=== PATIENT | male | born 1990 | race Caucasian/White ===

== ENCOUNTER 2017-01-07 20:06 | Emergency (ER) | payer OTHER ==
[2017-01-07] MEDS ORDERED: Acetaminophen 325 MG Tab PO ONE (20:27)
[2017-01-07] MEDS ORDERED: Ibuprofen 800 MG Tab PO ONE (20:27)
--- NOTE | 2017-01-07 20:29 | EDM.PDOC ---
ED HPI ENT - General Chief Complaint: ENT Problem Stated Complaint: PT HAS SORE THROAT Time Seen by Provider: 01/07/17 20:20 Source of Information: Reports: Patient History Limitations: Reports: No limitations - History of Present Illness INITIAL COMMENTS - FREE TEXT/NARRATIVE: HISTORY AND PHYSICAL: History of present illness: [26-year-old male with no significant past medical history now complaining of cough congestion intermittent fevers and sore throat times more than a week] patient has coughing fits that are sometimes severe and difficult to stop. He is sore from coughing. Denies shortness of breath. It does hurt to swallow the patient has no neck swelling. No vomiting or diarrhea. We'll bowel and bladder habits Review of systems: As per history of present illness and below otherwise all systems reviewed and negative. Past medical history: As per history of present illness and as reviewed below otherwise noncontributory. Surgical history: As per history of present illness and as reviewed below otherwise noncontributory. Social history: No reported history of drug or alcohol abuse. Family history: As per history of present illness and as reviewed below otherwise noncontributory. Physical exam: HEENT: Atraumatic, normocephalic, pupils reactive, negative for conjunctival pallor or scleral icterus, mucous membranes moist, throat clear, neck supple, nontender, trachea midline. Lungs: Clear to auscultation, breath sounds equal bilaterally, chest nontender. Heart: S1S2, regular, negative for clicks, rubs, or JVD. Abdomen: Soft, nondistended, nontender. Negative for masses or hepatosplenomegaly. Negative for costovertebral tenderness. Pelvis: Stable nontender. Genitourinary: Deferred. Rectal: Deferred. Extremities: Atraumatic, negative for cords or calf pain. Neurovascular unremarkable. Neuro: Awake, alert, oriented. Motor and sensory unremarkable throughout. Exam nonfocal. Diagnostics: [] Therapeutics: [] Impression: [] Plan: [Signs and symptoms consistent with persistent viral URI an otherwise healthy patient. Patient throat is normal-appearing and consistent with viral pharyngitis. Clear lungs normal respiratory rate and pulse ox patient is taking Mucinex DM [id number] and we'll prescribe Tessalon. Patient has not been treated for this illness she had and it is possible he may have an atypical pneumonia so we will prescribe Zithromax which are reassured and will also cover him for the much less likely possibility of an early bacterial infection in his throat. Patient aware to take prednisone to help symptomatically with his cough and presumed pulmonary inflammation ] Definitive disposition and diagnosis as appropriate pending reevaluation and review of above. - Related Data Allergies/ADRs: Allergies Allergy/AdvReac Type Severity Reaction Status Date / Time No Known Allergies Allergy Verified 01/07/17 20:17 Home Meds: Home Meds Azithromycin [Zithromax] 250 mg PO DAILY #6 tablet 01/07/17 [Rx] Benzonatate 200 mg PO TID #30 capsule 01/07/17 [Rx] Prednisone [IMW: predniSONE] 60 mg PO WITHBREAKFAST #7 tab 01/07/17 [Rx] ED ROS ENT - Review of Systems Review Of Systems: See Below ED EXAM, ENT - Physical Exam Exam: See Below (History of present illness) Course - Vital Signs Last Recorded V/S: Last Vital Signs Temp 37.4 C 01/07/17 20:17 Pulse 96 01/07/17 20:17 Resp 18 01/07/17 20:17 BP 136/80 01/07/17 20:17 Pulse Ox 97 01/07/17 20:17 - Orders/Labs/Meds Meds: Medications Discontinued Medications Generic Name Dose Route Start Last Admin Trade Name Dulce PRN Reason Stop Dose Admin Acetaminophen 650 mg 01/07/17 20:27 01/07/17 20:33 Tylenol PO 01/07/17 20:28 650 mg NOW ONE Administration Ibuprofen 800 mg 01/07/17 20:27 01/07/17 20:33 Motrin PO 01/07/17 20:28 800 mg ONETIME ONE Administration Departure - Departure Time of Disposition: 20:29 Disposition: Home, Self-Care 01 Condition: good Clinical Impression: Viral URI with cough, Acute viral syndrome Prescriptions: Azithromycin [Zithromax] 250 mg PO DAILY #6 tablet Benzonatate 200 mg PO TID #30 capsule Prednisone [IMW: predniSONE] 60 mg PO WITHBREAKFAST #7 tab Instructions: Viral Respiratory Infection, [id number] Referrals: PCP,None [Primary Care Provider] - Forms: ED Department Discharge Additional Instructions: Appears to have a viral upper respiratory infection. This can sometimes last for weeks. Rest and drink plenty of fluids. Take Motrin and Tylenol as needed for fevers or aches or discomfort with cough. Use Mucinex DM to help break up mucus and control cough. If you still have cough take Tessalon as prescribed. We are giving you Zithromax to cover for the possibility of walking pneumonia. If you do not notice a significant improvement within several days it's likely that it is viral syndrome and viral infection alone. Finish prednisone as prescribed this is a very strong anti-inflammatory medicine the will help suppress inflammation associated with your cough. Followup with your Dr. in one to 2 days and return immediately for new severe or worsening symptoms
[2017-01-07 21:30] VITALS: BP 127/77
== END 2017-01-07 20:55 | disposition home or self-care (01) ==
LOC: MW.ED 20:06
DX: J06.9 Acute upper respiratory infection, unspecified (principal); B34.9 Viral infection, unspecified; Z79.2 Long term (current) use of antibiotics
CPT/HCPCS: 99282; A9270; 99283

== ENCOUNTER 2024-10-16 14:22 | Emergency (ER) | payer OTHER ==
[2024-10-16] MEDS: Amoxicillin/Clavulanate K 875-125 MG Tab PO ONE (16:25)
[2024-10-16] MEDS: Benzocaine 20% Topical Spray UD MUCMEM ONE (16:25)
[2024-10-16] MEDS: Acetaminophen/HYDROcodone 325-5 MG Tab PO ONE (16:25)
[2024-10-16] MEDS: Lidocaine 2% Viscous Solution 15 ML UD PO ONE (16:25)
[2024-10-16 17:32] VITALS: BP 136/76; PULSE 82
== END 2024-10-16 17:32 | disposition home or self-care (01) ==
LOC: MW.ED 14:22
DX: S02.42XA Fracture of alveolus of maxilla, initial encounter for closed fracture (principal); S01.511A Laceration without foreign body of lip, initial encounter; Z90.49 Acquired absence of other specified parts of digestive tract; Z79.899 Other long term (current) drug therapy; Z75.8 Other problems related to medical facilities and other health care; W22.8XXA Striking against or struck by other objects, initial encounter
CPT/HCPCS: 70486; 99283; A9270; 99284

== ENCOUNTER 2024-11-10 12:37 | Emergency (ER) | payer BC, OTHER ==
[2024-11-10 15:02] VITALS: BP 128/83; PULSE 89
== END 2024-11-10 15:02 | disposition home or self-care (01) ==
LOC: MW.ED 12:37
DX: J32.9 Chronic sinusitis, unspecified (principal); B96.89 Other specified bacterial agents as the cause of diseases classified elsewhere; Z90.49 Acquired absence of other specified parts of digestive tract; Z75.8 Other problems related to medical facilities and other health care
CPT/HCPCS: 71046; 71046-26; 87428-QW; 99283